=== PATIENT | female | born 1985 | race African-American/Black ===

== ENCOUNTER 2018-01-17 13:15 | Emergency (ER) | payer OTHER, MEDICAID ==
[2018-01-17] MEDS ORDERED: cephALEXin 250 MG CAPSULE PO STA (15:28)
--- NOTE | 2018-01-17 15:31 | ED Physician Documentation ---
PD HPI SKIN - Stated complaint Stated Complaint: SORE ON BOTTOM - Chief complaint Chief Complaint: Wound - History obtained from History obtained from: Patient - History of Present Illness Timing - onset: Yesterday Timing - details: Gradual onset Location: Other (perineum) Quality / character: Painful Similar symptoms before: Diagnosis (Staph infection (boil).) - Additional information Additional information: The patient is a 32-year-old female who presents with a sore in her perineal region. She first noticed it yesterday, and it become worse today. She has a history of staph skin infections, which she states have been tested in the past and have been negative for MRSA. She denies fever, dysuria, or abdominal symptoms. Review of Systems Constitutional: denies: Fever Nose: denies: Congestion Throat: denies: Sore throat Respiratory: denies: Dyspnea GI: denies: Abdominal Pain, Nausea, Vomiting : denies: Dysuria Skin: reports: Lesions (Right perineum). denies: Rash Musculoskeletal: denies: Back pain PD PAST MEDICAL HISTORY - Past Medical History Past Medical History: No - Past Surgical History Past Surgical History: Yes /[employer]: section - Present Medications Home Medications: Ambulatory Orders Medication Instructions Recorded Confirmed Fluconazole [Diflucan] 150 mg PO ONCE #1 tablet 01/17/18 cephALEXin [Cephalexin] 500 mg PO QID #28 tablet 01/17/18 - Allergies Allergies/Adverse Reactions: Allergies Allergy/AdvReac Type Severity Reaction Status Date / Time No Known Drug Allergies Allergy Verified 01/17/18 15:21 - Social History Does the pt smoke?: No Smoking Status: Never smoker - Immunizations Immunizations are current?: Yes PD ED PE NORMAL - Vitals Vital signs reviewed: Yes (Initially hypertensive.) - General General: Alert and oriented X 3, Well developed/nourished, Other (Obese.) - HEENT HEENT: Atraumatic - Respiratory Respiratory: No respiratory distress - Derm Derm: Other (There is a small mildly raised, tender to palpation mass at the right perineum in the gluteal region between the vaginal labia and the anal crease. There is no fluctuance, and no central protrusion. It is mildly erythematous.) - Neuro Neuro: Alert and oriented X 3 Results - Vitals Vitals: Oxygen O2 Source Room air PD MEDICAL DECISION MAKING - ED course Complexity details: considered differential, d/w patient ED course: The patient's presentation is significant for an early abscess in the perineal region. It is quite small, without fluctuance, and does not warrant incision and drainage in its current state. Treatment in the emergency department included administration of cephalexin 500 mg orally. She is being discharged with prescription for cephalexin. I discussed with her antibiotic treatment, the expected course of illness, as well as potentially worrisome signs or symptoms that should prompt reevaluation in the emergency department. - Sepsis Event Vital Signs: Oxygen O2 Source Room air Departure - Departure Disposition: Home, Self Care Clinical Impression: Abscess Condition: Stable Instructions: ED Staph Infec Abx Tx Only Prescriptions: cephALEXin [Cephalexin] 500 mg PO QID #28 tablet Fluconazole [Diflucan] 150 mg PO ONCE #1 tablet Comments: Apply hot soaks to the sore area intermittently for the next 3 days. Clean the area with warm soapy water at least twice daily. Take cephalexin 4 times daily as prescribed. You can use Tylenol or ibuprofen if needed for discomfort. Follow up with your primary physician within 1-2 weeks. Call to schedule appointment. Return to the emergency department if you develop increasing swelling or pain, or otherwise worsening symptoms. Forms: Activity restrictions Discharge Date/Time: 01/17/18 15:57
[2018-01-17 15:51] VITALS: BP 104/75
== END 2018-01-17 15:57 | disposition home or self-care (01) ==
LOC: ED 13:15
DX: L02.215 Cutaneous abscess of perineum (principal)
CPT/HCPCS: 99283; A9270